=== PATIENT | female | born 1950 | race Caucasian/White ===

== ENCOUNTER 2019-05-27 01:10 | Emergency (ER) | payer BC ==
[~2019-05-27] VITALS: Ht 167.6 cm; Wt 81.7 kg
[2019-05-27] MEDS ORDERED: IBUPROFEN 800800 M1 PO (01:19)
[2019-05-27] MEDS ORDERED: OMEPRAZOLE20 M3 PO (01:19)
[2019-05-27] MEDS ORDERED: PERCOCET PO (01:21)
[2019-05-27] MEDS ORDERED: NORCO 7.5-3251 EACH PO (01:21)
[2019-05-27] MEDS ORDERED: LOSARTAN POTASS50 MG PO (02:07)
[2019-05-27] MEDS ORDERED: FLEXERIL PO (02:08)
[2019-05-27] MEDS ORDERED: IBUPROFEN 400400 M2 PO (02:08)
[2019-05-27] MEDS ORDERED: LEVOCETIRIZINE D5 MG PO (02:08)
[2019-05-27] MEDS ORDERED: LASIX 40 MG TAB40 M2 PO (02:08)
[2019-05-27] MEDS ORDERED: ZANTAC 150MG T150 MG PO (02:08)
[2019-05-27 02:09] VITALS: BP 132/74
== END 2019-05-27 02:09 | disposition home or self-care (01) ==
LOC: M.ERS 01:10
DX: S92.512A Displaced fracture of proximal phalanx of left lesser toe(s), initial encounter for closed fracture (principal); Z90.710 Acquired absence of both cervix and uterus; Z98.890 Other specified postprocedural states; Z90.49 Acquired absence of other specified parts of digestive tract; W22.8XXA Striking against or struck by other objects, initial encounter; Y92.89 Other specified places as the place of occurrence of the external cause; Y93.89 Activity, other specified; Y99.8 Other external cause status

== ENCOUNTER 2019-09-17 15:30 | Emergency (ER) | payer BC, MEDICARE ==
[~2019-09-17] VITALS: Ht 162.6 cm; Wt 90.7 kg
[~2019-09-17 15:30] MED LIST: FLEXERIL PO; IBUPROFEN 400400 M2 PO; IBUPROFEN 800800 M1 PO; LASIX 40 MG TAB40 M2 PO; LEVOCETIRIZINE D5 MG PO; LOSARTAN POTASS50 MG PO; NORCO 7.5-3251 EACH PO; OMEPRAZOLE20 M3 PO; PERCOCET PO; ZANTAC 150MG T150 MG PO
[2019-09-17 19:03] VITALS: BP 148/98
== END 2019-09-17 19:03 | disposition home or self-care (01) ==
LOC: M.ERS 15:30
DX: S01.01XA Laceration without foreign body of scalp, initial encounter (principal); S93.491A Sprain of other ligament of right ankle, initial encounter; S20.211A Contusion of right front wall of thorax, initial encounter; Z90.710 Acquired absence of both cervix and uterus; Z98.890 Other specified postprocedural states; Z90.49 Acquired absence of other specified parts of digestive tract; Z91.040 Latex allergy status; W18.39XA Other fall on same level, initial encounter; Y93.89 Activity, other specified; Y92.89 Other specified places as the place of occurrence of the external cause; Y99.8 Other external cause status

== ENCOUNTER 2019-09-28 14:44 | Emergency (ER) | payer BC, MEDICARE ==
[~2019-09-28] VITALS: Ht 167.6 cm; Wt 83.9 kg
[2019-09-28] MEDS ORDERED: PERCOCET 7.5-31 EACH PO (16:22)
[2019-09-28 16:40] VITALS: BP 178/90
== END 2019-09-28 16:42 | disposition home or self-care (01) ==
LOC: M.ERS 14:44
DX: S32.10XA Unspecified fracture of sacrum, initial encounter for closed fracture (principal); Z90.710 Acquired absence of both cervix and uterus; Z98.890 Other specified postprocedural states; Z90.49 Acquired absence of other specified parts of digestive tract; Z91.040 Latex allergy status; W18.39XA Other fall on same level, initial encounter; Y93.89 Activity, other specified; Y92.89 Other specified places as the place of occurrence of the external cause; Y99.8 Other external cause status